=== PATIENT | male | born 1960 ===

== ENCOUNTER 2022-10-27 15:24 | Outpatient (CLI) | payer BC, SELFPAY | END 2022-10-27 15:25 | disposition home or self-care (01) | PROVIDERS: PCP Physician Assistant Medical; Visit Provider Physician Assistant Medical | DX: Z00.00 Encounter for general adult medical examination without abnormal findings (principal); R03.0 Elevated blood-pressure reading, without diagnosis of hypertension; Z12.5 Encounter for screening for malignant neoplasm of prostate; Z13.29 Encounter for screening for other suspected endocrine disorder | CPT/HCPCS: 80053; 80061; 84153; 84443 ==

== ENCOUNTER 2024-11-26 10:29 | Outpatient (CLI) | payer BC, SELFPAY | END 2024-11-26 10:30 | disposition home or self-care (01) | LOC: NFLDREF 11-28 01:15 | PROVIDERS: PCP Physician Assistant Medical; Referring Provider Physician Assistant Medical; Visit Provider Physician Assistant Medical | DX: L98.9 Disorder of the skin and subcutaneous tissue, unspecified (principal); I10 Essential (primary) hypertension; Z13.6 Encounter for screening for cardiovascular disorders; Z12.5 Encounter for screening for malignant neoplasm of prostate | CPT/HCPCS: 80053; 80061; 84443; G0103 ==

== ENCOUNTER 2025-01-01 10:37 | Outpatient (CLI) | payer BC, SELFPAY ==
--- NOTE | 2025-01-01 12:28 | P.ANES_ITS ---
Anesthesia Charges Start Date/Time Anesthesia Start Date: 01/01/25 Anesthesia Start Time: 11:43 Stop Date/Time Anesthesia Stop Date: 01/01/25 Anesthesia Stop Time: 12:26 Coding CPT Codes CPT Codes: ANES LWR INTST NDSC NOS - [id number] ([id number]) P3 - PATIENT W/SEVERE SYS DISEASE, QX - STRAIGHTENING PRESS OPERATOR SVC W/ MD MED DIRECTION, QK - DIRECTOR INTERNATIONAL 2-4 CNCRNT ANES PROC
--- NOTE | 2025-01-01 12:28 | W.ANESCHARGE ---
Anesthesia Charges Start Date/Time Anesthesia Start Date: 01/01/25 Anesthesia Start Time: 11:43 Stop Date/Time Anesthesia Stop Date: 01/01/25 Anesthesia Stop Time: 12:26 Coding CPT Codes CPT Codes: ANES LWR INTST NDSC NOS - [id number] ([id number]) P3 - PATIENT W/SEVERE SYS DISEASE, QX - AUCTIONEER ART SVC W/ MD MED DIRECTION, QK - WINE BLENDER 2-4 CNCRNT ANES PROC
--- NOTE | 2025-01-01 12:40 | P.ANES_ITS ---
Anesthesia Charges Start Date/Time Anesthesia Start Date: 01/01/25 Anesthesia Start Time: 11:43 Stop Date/Time Anesthesia Stop Date: 01/01/25 Anesthesia Stop Time: 12:26 Coding CPT Codes CPT Codes: ANES LWR INTST NDSC NOS - [id number] ([id number]) QK - BODY BUILDER 2-4 CNCRNT ANES PROC, QX - PROJECT FINANCE ANALYST SVC W/ MED DIRECTION, P3 - PATIENT W/SEVERE SYS DISEASE
--- NOTE | 2025-01-01 12:40 | W.ANESCHARGE ---
Anesthesia Charges Start Date/Time Anesthesia Start Date: 01/01/25 Anesthesia Start Time: 11:43 Stop Date/Time Anesthesia Stop Date: 01/01/25 Anesthesia Stop Time: 12:26 Coding CPT Codes CPT Codes: ANES LWR INTST NDSC NOS - [id number] ([id number]) QK - COLLEGE SPECIALIST 2-4 CNCRNT ANES PROC, QX - GEOSPATIAL SYSTEMS INTEGRATOR SVC W/ MED DIRECTION, P3 - PATIENT W/SEVERE SYS DISEASE
== END 2025-01-01 10:38 | disposition home or self-care (01) ==
LOC: OP CLINIC 10:39
PROVIDERS: PCP Physician Assistant Medical; Visit Provider Surgery
DX: Z12.11 Encounter for screening for malignant neoplasm of colon (principal); Z86.0109 Personal history of other colon polyps; D12.3 Benign neoplasm of transverse colon; D12.5 Benign neoplasm of sigmoid colon; K57.30 Diverticulosis of large intestine without perforation or abscess without bleeding
CPT/HCPCS: 00811; 00812; 45385; 88305; J2704

== ENCOUNTER 2025-02-04 16:36 | Outpatient (CLI) | payer BC, SELFPAY ==
--- NOTE | 2025-02-04 16:45 | CRLHL7_ITS ---
For Patients: As a result of the Century Cures Act, medical imaging exams and procedure reports are released immediately into your electronic medical record. You may view this report before your referring provider. If you have questions, please contact your health care provider. INDICATION: Pain and swelling TECHNIQUE: Ultrasound venous duplex lower right extremity. Compression venous exam was performed using dye-scale, color Doppler, and spectral Doppler imaging. COMPARISON: None FINDINGS: Sonographic imaging demonstrates the right common femoral, deep femoral, superficial femoral, popliteal, posterior tibial and greater saphenous and the contralateral left common femoral veins to be fully compressible with normal color Doppler blood flow. IMPRESSION: No convincing radiographic evidence of deep vein thrombosis within the visualized right lower extremity. Dictated by Dae Sun MD @ 02/04/2025 6:02:13 PM (Electronically Signed)
== END 2025-02-04 16:37 | disposition home or self-care (01) ==
LOC: US 16:37
PROVIDERS: PCP Physician Assistant Medical; Visit Provider Physician Assistant Medical
DX: M79.604 Pain in right leg (principal); M79.89 Other specified soft tissue disorders
CPT/HCPCS: 93971